=== PATIENT | female | born 1995 | race Hispanic/Latino ===

== ENCOUNTER 2018-07-31 18:25 | Emergency (ER) | payer OTHER, SELFPAY ==
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
[2018-07-31 20:56] LABS: Urine Blood NEGATIVE (NEG); Urine Glucose NEGATIVE (NEG); Urine Protein NEGATIVE (NEG)
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
== END 2018-07-31 21:51 | disposition home or self-care (01) ==
LOC: ER 18:25
DX: S33.5XXA Sprain of ligaments of lumbar spine, initial encounter (principal); V49.40XA Driver injured in collision with unspecified motor vehicles in traffic accident, initial encounter; E03.9 Hypothyroidism, unspecified
CPT/HCPCS: 72100; 81003; 81025; 99284